=== PATIENT | male | born 1955 | race Caucasian/White ===

== ENCOUNTER 2016-06-12 09:34 | Emergency (ER) | payer OTHER ==
[~2016-06-12] VITALS: Ht 167.6 cm; Wt 115.0 kg
[~2016-06-12 09:34] MED LIST: ADVAIR HFA120 INHALA IH; ALBUTEROL17 GM; ALEVE LIQUID G220 MG PO; ANAPROX DS550 M1 PO; ASPIR 8181 M1; ASPIRIN E.C.81 M1 PO; Advair HFA 115/21 IH; BIOTIN1000 MICRO PO; Biotin PO; COQ-10100 MG PO; GLUCOSAMINE SU500 M1 PO; Hydrodiuril,Oretic,E PO; LIPITOR20 MG PO; LYRICA50 MG PO; METOPROLOL SUCC25 MG PO; Motrin PO; Move Free Advanced T PO; NEXIUM40 MG PO; PREDNISONE 5 MG PO; PROTONIX40 MG PO; Proventil,Ventolin H IH; SPIRIVA1 INHALATI IH; THERAGRAN1 TABLET PO; Toprol XL PO; VICODIN,LORT1 TABLET PO; VITAMIN B-12500 MC2 PO; VITAMIN D31000 UNIT PO; Vitamin B-12 PO; Vitamin D PO; ZESTRIL,PRINIVI10 M1 PO
[2016-06-12 10:33] LABS: BASOPHIL COUNT 0.1 K/uL (0-0.1); EOSINOPHIL (%) 2.3 % (0-5); EOSINOPHIL COUNT 0.3 K/uL (0-0.3); HEMATOCRIT 41.8 % (38.0-50.0); IMMATURE GRANULOCYTE (%) 0.4 % (0.0-0.7); IMMATURE GRANULOCYTE COUNT 0.6 K/uL; MCH 30.1 PG (29.0-34.0); MCHC 34.4 G/DL (30.0-36.0); MCV 87.3 FL (86-99); MEAN PLAT.VOLUME 9.7 uM^3 (9.0-12.4); MONOCYTE (%) 7.5 % (3-12); MONOCYTE COUNT 1.1 K/uL (0-0.8); NEUTROPHIL (%) 68.3 % (45-76); NEUTROPHIL COUNT 9.7 K/uL (1.8-6.4); PLATELET COUNT 313 K/uL (156-360); RBC DIS.WIDTH-CV 12.6 % (11.8-14.6); RBC DIS.WIDTH-SD 39.4 % (39-53); RED BLOOD COUNT 4.79 M/uL (4.00-5.50); WHITE BLOOD COUNT 14.1 K/uL (4.1-10.2)
[2016-06-12 10:35] LABS: INFLUENZA A VIRAL ANTIGEN NEGATIVE; INFLUENZA B VIRAL ANTIGEN NEGATIVE
[2016-06-12 11:44] LABS: CHLORIDE 106 mEq/L (99-109); POTASSIUM 3.6 mEq/L (3.7-5.4); SODIUM 142 mEq/L (136-147)
[2016-06-12 11:46] LABS: GLUCOSE 106 mg/dL (70-99)
[2016-06-12 11:48] LABS: ANION GAP 10 MEQ/L (2-14)
[2016-06-12 11:50] LABS: GFR ESTIMATE (CALCULATED) > 59 mL/min/
[2016-06-12 11:51] LABS: UREA NITROGEN (BUN) 15 mg/dL (9-23)
[2016-06-12] MEDS ORDERED: ZITHROMAX Z-PA250 MG PO (12:47)
[2016-06-12] MEDS ORDERED: PREDNISONE50 MG PO (12:47)
[2016-06-12 13:23] VITALS: BP 132/82
== END 2016-06-12 13:29 | disposition home or self-care (01) ==
LOC: EME 09:34
PROVIDERS: Emergency Medicine
DX: J44.1 Chronic obstructive pulmonary disease with (acute) exacerbation (principal); J44.0 Chronic obstructive pulmonary disease with (acute) lower respiratory infection; J20.9 Acute bronchitis, unspecified; G89.29 Other chronic pain; I10 Essential (primary) hypertension; K21.9 Gastro-esophageal reflux disease without esophagitis; Z79.82 Long term (current) use of aspirin; Z87.891 Personal history of nicotine dependence
CPT/HCPCS: 71020; 80048; 85025; 87502; 94640; 99281; 99285; J2930; J7030